=== PATIENT | female | born 1995 | race Two or more races ===

== ENCOUNTER 2022-11-19 08:28 | Emergency (ER) | payer MEDICAID ==
[~2022-11-19] VITALS: Ht 170.2 cm; Wt 85.9 kg
[2022-11-19] MEDS ORDERED: KETOROLAC TROMETH 30 MG/ML 1ML VIAL IM ONE (09:15)
[2022-11-19] MEDS ORDERED: cefTRIAXone SOD 1,000 MG VL IM ONE (09:15)
[2022-11-19 09:16] VITALS: BP 120/58
[2022-11-19] MEDS ORDERED: CEPH-510 PO (09:18)
[2022-11-19] MEDS ORDERED: IBUP600T28 PO (09:18)
[2022-11-19] MEDS ORDERED: BACDST PO (09:18)
== END 2022-11-19 09:44 | disposition home or self-care (01) ==
LOC: ER 08:28
DX: L02.413 Cutaneous abscess of right upper limb (principal); Z79.899 Other long term (current) drug therapy; Z90.49 Acquired absence of other specified parts of digestive tract
CPT/HCPCS: 96372; 99284; J0696; J1885

== ENCOUNTER 2022-11-28 09:54 | Emergency (ER) | payer MEDICAID ==
[~2022-11-28] VITALS: Ht 170.2 cm; Wt 86.2 kg
[~2022-11-28 09:54] MED LIST: BACDST PO; CEPH-510 PO; IBUP600T28 PO
[2022-11-28 11:11] LABS: Basophils # (auto) 0.1 10 ^3/uL (0-0.2); Basophils % (auto) 0.6 % (0.0-2.0); Eosinophils # (auto) 0.1 10 ^3/uL (0-0.8); Eosinophils % (auto) 0.8 % (0.0-7.0); Hematocrit 42.1 % (36.0-46.0); Lymphocytes # (auto) 2.7 10 ^3/uL (0.4-5.4); Lymphocytes % (auto) 27.6 % (10.0-50.0); Mean Corpuscular Hemoglobin 28.6 pg (28.0-32.0); Mean Corpuscular Hgb Conc. 33.3 g/dL (32.0-36.0); Mean Corpuscular Volume 86.1 fL (80.0-100.0); Monocytes # (auto) 0.6 10 ^3/uL (0-1.3); Monocytes % (auto) 5.7 % (0.0-12.0); Neutrophils # (auto) 6.4 10 ^3/uL (1.6-8.6); Neutrophils % (auto) 65.3 % (37.0-80.0); Nucleated Red Blood Cells % 0.1 %; Red Blood Cells 4.89 10^6/uL (4.0-5.20); Red Cell Distribution Width 13.2 % (11.8-14.3); White Blood Cell 9.8 10^3/uL (4.4-10.8)
[2022-11-28 11:27] LABS: Albumin 3.9 g/dL (3.4-5.0); Calcium 9.2 mg/dL (8.5-10.1); Potassium 4.4 mmol/L (3.5-5.1)
[2022-11-28 11:31] LABS: BUN/Creatinine Ratio 11.4; Bilirubin, Total 0.7 mg/dL (0.2-1.0); Total Protein 7.7 g/dL (6.4-8.2)
[2022-11-28 13:57] VITALS: BP 118/77
== END 2022-11-28 13:57 | disposition home or self-care (01) ==
LOC: ER 09:54
DX: L02.212 Cutaneous abscess of back [any part, except buttock and flank] (principal); R07.89 Other chest pain; Z90.49 Acquired absence of other specified parts of digestive tract; Z79.1 Long term (current) use of non-steroidal anti-inflammatories (NSAID); Z79.899 Other long term (current) drug therapy
CPT/HCPCS: 36415; 71045; 80053; 84484; 85025

== ENCOUNTER 2025-06-11 02:51 | Inpatient (IN) | payer MEDICAID ==
[~2025-06-11] VITALS: Ht 170.2 cm; Wt 99.8 kg
[~2025-06-11 02:51] MED LIST changes: +IBUP1TAB5 PO; -IBUP600T28 PO
[2025-06-11] MEDS ORDERED: DERMOPLAST 60ML BOTTLE TOP PRN (03:15)
[2025-06-11] MEDS ORDERED: BUTORPHANOL TARTRATE 2 MG/1 ML VIAL IV PRN ×2 (03:15)
[2025-06-11] MEDS ORDERED: PENICILLIN G POT 5MIL/D5 50ML 50 ML IV ONE (03:15)
[2025-06-11] MEDS ORDERED: PHISODERM TOP SOLN 240ML BTL TOP PRN (03:15)
[2025-06-11] MEDS ORDERED: WITCH HAZEL-GLYCERIN PAD TOP PRN (03:15)
[2025-06-11] MEDS: LACT. RINGERS/OXYTOCIN 20UNITS 1,000 ML IV ONE (03:23)
[2025-06-11] MEDS: LACTATED RINGER'S 1,000 ML IV SCH (04:05)
[2025-06-11] MEDS: LIDOCAINE 2%HCL (LOCAL ANESTH.) INJ 20ML MDV IJ PRN (04:06)
[2025-06-11 04:12] LABS: Hematocrit 36.7 % (36.0-46.0); Hemoglobin 12.3 g/dL (12.2-16.2); Mean Corpuscular Hemoglobin 28.3 pg (28.0-32.0); Mean Corpuscular Volume 84.8 fL (80.0-100.0); Nucleated Red Blood Cells % 0.0 %
[2025-06-11] MEDS: LACT. RINGERS/OXYTOCIN 20UNITS 500 ML IV ONE ×2 (04:15→04:16)
--- NOTE | 2025-06-11 04:24 | DVHHP2 ---
OB CC & HPI Date Date of Admission: Jun 11, 2025 Patient Identification: : 4 Para: 1 EDC: Jun 15, 2025 EGA: 39.3 Chief Complaints: Reason for admission: active labor History of Present Complaints 30y Para x 1 Term IUP 39.[address] Ng, PNL care uncomplicated per patient States she is GBS neg, Records not available Presented in active labor, 7cm with precipitous delivery (see delivery note) Past Medical History Cardiac: No pertinent Hx Pulmonary: No pertinent Hx Central Nervous System: No pertinent Hx GI: No pertinent Hx Hemotology/Oncology: No pertinent Hx Hepatobiliary: No pertinent Hx Psychiatric: No pertinent Hx Musculoskeletal: No pertinent Hx Rheumotologic: No pertinent Hx Infectious Disease: No peritnent Hx ENT: No pertinent Hx Renal/: No pertinent Hx Endocrine: No pertinent Hx Dermatology: No pertinent Hx Past Surgical History: No pertinent Hx OB History OB History Care: Good Care Ultrasounds: Normal mid trimester US Obstetrical Complications: None Medical Complications: None Allergies: Coded Allergies: NO KNOWN ALLERGIES (Unverified , 11/28/22) Home Meds Active Scripts Ibuprofen Micronized (Ibuprofen) 600 Mg Tab, 600 MG PO Q8HPRN PRN, #30 TAB 0 Refills Prov:ESTEFANY BISWAS HORSEBACK EXCAVATOR 11/19/22 Sulfamethoxazole W/Trimethopri (Bactrim Ds Tablet) 1 Tab Tb, 1 TAB PO BID for 10 Days, #20 TAB 0 Refills Prov:ESTEFANY BISWAS HORSEBACK EXCAVATOR 11/19/22 Cephalexin ( Keflex 500) 500 Mg Cap, 1 CAP PO QID for 10 Days, #40 CAP 0 Refills Prov:ESTEFANY BISWAS HORSEBACK EXCAVATOR 11/19/22 Current Medications Current Medications Medications (Trade) Dose Ordered Sig/Jen Route PRN Reason Start Time Stop Time Status Last Admin Lactated Ringer's 1,000 ml @ 125 mls/hr Q8H IV 06/11/25 03:15 06/11/25 04:05 Penicillin G Potassium [id number] units/Dextrose 50 ml @ 100 mls/hr Q4H IV 06/11/25 07:15 Witch Miladys (Tucks) 1 pad PRN PRN TOP PERINEAL AREA DISCOMFORT 06/11/25 03:15 Sodium Lauryl Sulfate (Phisoderm) 240 ml PRN PRN TOP PERINEAL AREA DISCOMFORT 06/11/25 03:15 Benzocaine (Dermoplast) 1 applic PRN PRN TOP PERINEAL AREA DISCOMFORT 06/11/25 03:15 Butorphanol Tartrate (Stadol Injection) 1 mg Q4HPRN PRN IV MODERATE PAIN (4-6 PAIN SCALE) 06/11/25 03:15 Butorphanol Tartrate (Stadol Injection) 2 mg Q4HPRN PRN IV SEVERE PAIN (7-10 PAIN SCALE) 06/11/25 03:15 Lidocaine HCl (Xylocaine) 20 ml ONCE PRN IJ PERINEAL AREA DISCOMFORT 06/11/25 03:15 06/11/25 04:06 Family & Social History Family/Social History RPR/VDRL: Negative GBS Status: Negative HBsAG: Negative Review of Systems Constitutional: No symptom reported Ears, Nose, & Throat: No symptom reported Eyes: No symptom reported Pulmonary/Respiratory: No symptom reported Cardiovascular: No symptom reported Gastrointestinal: No symptom reported Genitourinary: No symptom reported Musculoskeletal: No symptom reported Skin: No symptom reported Psychiatric: No symptom reported Endocrine: No symptom reported Hemotologic/Lymphatic: No symptom reported OB Admission Exam Physical Exam HEENT: NCAT Heart: Rhythm Normal Lungs: Clear Abdomen: Gravid Extremities: Normal Reflexes: Normal Pelvic Exam: Pelvis adequate EFW 8lb Cervical Dilatation: 7cm Effacement: Other (80) Station: -2 Membranes: Ruptured Amniotic Fluid: Clear Heart Rate: 140's Accelerations: Accelerations Present Decelerations: No Decelerations Short Term Variability: Present Halfway Variability: Average (6-25) Contractions on Admission: < 5 Minutes Apart Intensity: Moderate OB Plan Plan Admitting Diagnosis: Term IUP 39.3 wk, Active spontaneous labor Categ 1 FHR tracing GBS neg (per patient) Plan: Expectant Management Other Plan: Admit for labor and delivery Anticipated Informed consent obtained PNL records/ labs requested (pending) Visit Coding OBGYN Date of Service: Jun 11, 2025 Billing Provider: LAILA CONTRERAS DO [employer] SOLUTION ARCHITECT Common Visit Codes: [id number] INP/OBS CARE (HIGH) LAILA CONTRERAS DO Jun 11, 2025 04:24
--- NOTE | 2025-06-11 04:27 | LDN2 ---
Labor and Delivery Note Date 06/11/25 Age 30 4 Para 1 AB 2 EGA 39.3 Diagnosis Term , spont labor Vaginal Delivery: VTX Vacuum Assisted: No Placenta: Spontaneous Sex: Male Weight Pending Apgars 8/9 Amniotic Fluid: Clear Anesthesia NONE Episiotomy: No Repaired with 2nd deg lac repaired w/ 3-0 Chromic under local anesthesia 1% lidocaine x 10ml used EBL 100 mL Complications None Conditions Stable Comments/Significant Med K[place]is uncomplicated Precipitous delivery upon admission Visit Coding OBGYN Date of Service: Jun 11, 2025 Billing Provider: LAILA CONTRERAS DO CUTTING PRESSMAN Common Visit Codes: PROCEDURE ONLY CUTTING PRESSMAN Procedure Codes: [id number] DEL INCLUDING LAILA CONTRERAS DO Jun 11, 2025 04:26
[2025-06-11 04:29] LABS: Alanine Aminotransferase 14 U/L (7-40); Albumin 3.8 g/dL (3.2-4.8); Anion Gap 11 (5-15); BUN/Creatinine Ratio 11.5 (10.0-20.0); Bilirubin, Total 0.4 mg/dL (0.2-1.0); Calcium 9.1 mg/dL (8.7-10.4); Chloride 106 mmol/L (98-107); INR 0.92 (0.9-1.15); Partial Thromboplastin Time 25.0 SEC (24.5-34.5); Potassium 3.8 mmol/L (3.5-5.1); Prothrombin Time 9.8 sec (9.3-11.8); Sodium 137 mmol/L (136-145); Total Protein 6.2 g/dL (5.7-8.2)
[2025-06-11 04:35] LABS: Alkaline Phosphatase 202 U/L (46-116); Blood Urea Nitrogen 7 mg/dL (9-23); Carbon Dioxide 20 mmol/L (20-31); Glucose 115 mg/dL (74-106)
[2025-06-11] MEDS ORDERED: ACETAMINOPHEN 325 MG TAB PO PRN (06:45)
[2025-06-11] MEDS ORDERED: PENICILLIN G POTASSIUM 2,500,000 UNITS in D5W 5% 50 ML IV SCH (07:15)
[2025-06-11 07:22] VITALS: BP 96/58; PULSE 86; RESP 17; TEMP 98.5; O2SAT 98
[2025-06-11 11:19] VITALS: BP 118/66; PULSE 78; RESP 17; TEMP 98.3; O2SAT 96
[2025-06-11 14:49] VITALS: BP 114/71; PULSE 93; RESP 17; TEMP 98.4; O2SAT 95
[2025-06-11 15:06] LABS: Urine Protein, UAD 1+ (Negative); Urine WBC Clumps PRESENT /hpf (None Seen)
[2025-06-11 15:31] LABS: Amphetamine Screen, Urine Neg (NEGATIVE); Barbiturate Scree,Urine Neg (NEGATIVE); Benzodiazephine Screen, Urine Neg (NEGATIVE); Cannabinoid Screen, Urine Neg (NEGATIVE); Cocaine Screen, Urine Neg (NEGATIVE); Opiate Scree,Urine Neg (NEGATIVE); Phencyclidine Screen, Urine Neg (NEGATIVE)
[2025-06-11] MEDS ORDERED: PREN-96 PO (15:40)
[2025-06-11 18:30] VITALS: BP 105/64; PULSE 89; RESP 18; TEMP 98.2; O2SAT 99
[2025-06-11] MEDS: IBUPROFEN 600 MG TAB PO PRN (23:04)
[2025-06-11 23:30] VITALS: BP 115/71; PULSE 70; RESP 18; TEMP 98.3; O2SAT 99
[2025-06-12 03:00] VITALS: BP 111/54; PULSE 72; RESP 18; TEMP 97.9; O2SAT 95
[2025-06-12 07:03] VITALS: BP 108/55; PULSE 81; RESP 17; TEMP 98; O2SAT 97
[2025-06-12] MEDS ORDERED: IBU600T PO (09:21)
--- NOTE | 2025-06-12 09:21 | DVHDS2 ---
Physician Discharge Progress N Final Diagnosis: Term , delivered Operations or Procedures: Operations or Procedures Commentary: Commentary Uneventful labor and normal vaginal delivery, uncomplicated normal PP course Condition on Discharge: Stable Disposition: Home Discharge Instructions: Diet: Regular Activity: Light activity Activity comment: Pelvic rest x 6 wk Follow Up/Referral: Dr Ng in 2-3 wk Medications: Ibuprofen PRN pain/cramps Follow Up Care: Discharge Statement: "Patient was advised to return to the ER or call 911 if any headaches, dizziness , shortness of breath, chest pain, abdominal pain, bleeding, fevers, or worsening of medical condition. Patient was counseled about treatment plan, medications, possible side effects, patientverbalized understanding. All questions were answered to the best of my ability. This discharge took greater then 30 minutes in planning, reviewing documentation, counseling the patient, and discussing with other team members." Visit Coding OBGYN Date of Service: Jun 12, 2025 Billing Provider: LAILA CONTRERAS DO GLUE JOINTER FEEDER Common Visit Codes: 60048-KIB/OBS DISCH DAY <30MIN LAILA CONTRERAS DO Jun 12, 2025 09:21
[2025-06-12 10:46] VITALS: BP 111/67; PULSE 84; RESP 17; TEMP 98.3; O2SAT 98
== END 2025-06-12 13:07 | disposition home or self-care (01) | DRG 560 ==
LOC: LDRP 02:51 → OBSVTOIN 03:05 → LDRP 03:07
PROVIDERS: ADMIT Obstetrics & Gynecology; ATTEND Obstetrics & Gynecology
PROC: 10E0XZZ Delivery of Products of Conception, External Approach (ICD-10-PCS; principal; 2025-06-11)
PROC: 0KQM0ZZ Repair Perineum Muscle, Open Approach (ICD-10-PCS; 2025-06-11)
DX: O70.1 Second degree perineal laceration during delivery (principal); Z37.0 Single live birth; O62.3 Precipitate labor; Z3A.39 39 weeks gestation of pregnancy
CPT/HCPCS: 36415; 59025; 59409; 80053; 80307; 81001; 81002; 85025; 85610; 85730; 86780; 86803; 86850; 86900; 86901; 94760; 96360; 96361; 96365; 96366; G0378; J2590; J7060